=== PATIENT | female | born 1970 | race Caucasian/White ===

== ENCOUNTER → 2021-03-26 16:10 | Outpatient (CLI) | payer BC, SELFPAY ==
[2021-03-26 18:46] LABS: Urine Pregnancy, HCG Qual. Negative (Negative)
== END ==
PROVIDERS: Visit Provider Internal Medicine Gastroenterology
DX: Z01.812 Encounter for preprocedural laboratory examination (principal); Z11.52 Encounter for screening for COVID-19; Z13.810 Encounter for screening for upper gastrointestinal disorder
CPT/HCPCS: 81025; U0003

== ENCOUNTER 2021-03-28 11:49 | Day surgery (SDC) | payer BC, SELFPAY ==
[2021-03-28 12:27] VITALS: BP 131/73; PULSE 81; RESP 18; TEMP 36.7; O2SAT 100
--- NOTE | 2021-03-28 13:12 | P.PN_ITS ---
[facility] Anesthesia Checklist - Patient Identification Patient Identification: Arm Band - Structural Data Admitted From: Home Planned Operative Procedure/s: egd Consent for Planned Operative Procedure(s) Verified: Yes Verified Documents: Surgical Consent, History and Physical - NPO Status Verified Time NPO: 00:00 - Additional verifications Anesthesia Reactions: No - Airway Assessment C-Spine Mobility Assessed: Yes (mp2) TMJ Mobility Assessed: Yes Dentition: Good Dentition - Neurological Assessment Level of Consciousness: Awake, Alert - Anesthesia Plan Anesthesia Risk discussed: Yes Anesthesia Plan: Verified ASA Class: II Anesthesia Type: MAC [facility] History I have reviewed the patient's past medical history: Yes Medical History: Reports:: Gastroesophageal Reflux Disease(GERD) Denies:: Cancer, Diabetes Mellitus Type 1, Diabetes Mellitus Type 2, MRSA, Seizures *Have you ever received a pneumonia vaccine?: No *Have you received a flu vaccine this season?: Yes Anesthesia experience/problems:: nac Other Surgeries: Yes: Other Amputation: No Fractures: No - *Social History Last grade of school completed: High school graduate Smoking Status: Never smoker Alcohol Intake: never Substance Use Type: denies use *Occupational Status:: employed *Travel in the last 8 weeks: None Family Hx:: No significant family history
--- NOTE | 2021-03-28 13:20 | P.PCN_ITS ---
[facility] Procedure Note Procedure Note:: Upper Endoscopy Procedure Report: Esophagogastroduodenoscopy with cold biopsies Endoscopost: Roman Plascencia II, MD Referring Physician: Jonnie Clifton DO Date of Procedure: March 28, 2021 Equipment: Olympus GIF 190 standard upper endoscope Sedation: MAC sedation Indications: Mrs. Marie is a 50-year-old female with epigastric abdominal burning and pressure. She also has some burning in her throat with occasional hoarseness and heartburn. She does report some coughing on occasion. She has throat soreness but no globus sensation. She does report intermittent mild belching, bloating and early satiety. This had worsened over the last 18 months and she has had some increased stress and anxiety. 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 The patient did have an ultrasound of the gallbladder which was normal. Her HIDA scan showed a low ejection fraction. She did receive liquid Ensure (rather than Kinevac) and did not have any symptoms after ingestion. The patient has been taking pantoprazole 40 mg by mouth twice daily without much improvement. She has improved a little with FDgard. Procedure: Prior to the procedure, a history and physical exam was performed, and patient's medications and allergies were reviewed. The risks, benefits and alternatives of the sedation and procedure were discussed with the patient. All questions were answered and informed consent was obtained. The patient was brought to the procedure room. Patient identification and proposed procedure were verified by the physician and the nurse. The patient was placed in a left lateral decubitus position and the scope was passed under direct vision. Throughout the procedure, the patient's blood pressure, pulse, and oxygen saturations were monitored continuously. The upper GI endoscopy was accomplished without difficulty. The patient tolerated the procedure well. Findings: The scope was passed directly into the upper esophagus and advanced to the third portion of the duodenum. The post bulbar duodenum and duodenal bulb were normal with normal mucosa and conniventes. The scope was withdrawn through a normal duodenal bulb and pylorus into the stomach. There was bile reflux with linear reactive gastropathy of the antrum of the stomach. The remainder of the body and fundus of the stomach were grossly normal. Upon retroflexion there was no hiatal hernia. 2 biopsies were taken in the antrum and along the lesser curvature for histology to rule out gastritis and/or H pylori. The scope was then withdrawn into the esophagus. There was no evidence of reflux esophagitis or Blanchard's. There was no Schatzki's ring. There were tertiary contractions and evidence of mild esophageal dysmotility. The remainder of the esophageal mucosa was normal. Impression: 1. Nonerosive GERD with mild esophageal dysmotility 2. Bile reflux with mild linear reactive gastropathy of antrum Plan: I will follow-up the biopsies. I do feel the patient has functional/duodenal reflux with associated dyspepsia. We will discuss additio nal treatment options which will include fiber bowel regimen and possibly treatment for visceral sensitivity.
[2021-03-28 13:22] VITALS: BP 119/75; PULSE 84; RESP 16; TEMP 36.4; O2SAT 96
[2021-03-28 13:32] VITALS: BP 120/70; PULSE 83; RESP 16; TEMP 36.4; O2SAT 100
[2021-03-28 13:42] VITALS: BP 136/77; PULSE 84; RESP 18; TEMP 36.4; O2SAT 98
[2021-03-28 13:58] VITALS: BP 136/77; PULSE 84; RESP 18; TEMP 36.4; O2SAT 98
== END 2021-03-28 13:58 | disposition home or self-care (01) ==
LOC: OUTP 11:54
PROVIDERS: PCP Internal Medicine; Visit Provider Internal Medicine Gastroenterology
PROC: 0DJ08ZZ Inspection of Upper Intestinal Tract, Via Natural or Artificial Opening Endoscopic (ICD-10-PCS; CPT 43235; principal; 2021-03-28 13:00)
DX: K21.9 Gastro-esophageal reflux disease without esophagitis (principal); K22.4 Dyskinesia of esophagus; K31.9 Disease of stomach and duodenum, unspecified; Z80.1 Family history of malignant neoplasm of trachea, bronchus and lung; Z83.3 Family history of diabetes mellitus; Z82.49 Family history of ischemic heart disease and other diseases of the circulatory system; Z88.2 Allergy status to sulfonamides; Z79.899 Other long term (current) drug therapy
CPT/HCPCS: 43239